=== PATIENT | male | born 1995 ===

== ENCOUNTER 2023-02-13 23:57 | Inpatient (IN) | payer OTHER, SELFPAY ==
[2023-02-14 06:01] VITALS: BMI 38.4
--- NOTE | 2023-02-14 06:07 | PC.ADMIT ---
Addendum entered by Diane Hernandes RN 02/14/23 06:26: I can't control the thoughts and their really intense in patients medication history he has taken Abilify in the past however he did not receive the medication in the [facility] ER on 02/13 therefore this medication requires clarification ( the patient cannot remember the name of the pharmacy that is used by the respite facility the patient currently resides in. the patient states he has a history of diabetes I only take metformin, I'm not staying here if people think they are going to stick my fingers cause they're not and a reported history of HTN. 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 the patient denies AVH then stated that sometimes I hear a voice in my head that is west commanding me to do things. sometimes I see things it used to be shadows, I started seeing them when I was little, then they turned into monsters. Yes, the voice was telling me to kill everyone in the world. It told me to get all the blow fish from the sea and get their poison and then use their poison to kill everyone because there is no cure for that poison. I don't really want to kill everyone but then again I do, what's the point. life is pain and disappointment, what's the point. I couldn't stop the thoughts about killing everyone so then I started thinking that I should kill myself, at least then I wouldn't be having all these thoughts patient is oriented but has racing thoughts and flight of ideas and grandiosity. he states that he doesn't think his medications are working I've been on the same stuff for a really long time they can't be working right because I'm having these thoughts that I can't comn .
--- NOTE | 2023-02-14 06:15 | PHA.MEDREC ---
Pharmacy Consult ? Medication Reconciliation Pharmacy has completed the medication reconciliation. Pharmacy has reviewed med rec done by nursing
[2023-02-14 08:10] VITALS: BP 107/69; PULSE 87; RESP 18; TEMP 36.7; O2SAT 98
[2023-02-14] MEDS: Lurasidone HCl 40 MG TABLET PO (09:29)
[2023-02-14] MEDS: Propranolol HCL LA 80 MG CAP.SA.24H PO (09:29)
[2023-02-14] MEDS: metFORMIN HCl ER 500 MG TAB.ER.24H PO (09:29)
[2023-02-14 10:23] VITALS: BMI 38.7
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
[2023-02-14] MEDS: OLANZapine 5 MG TABLET PO ×2 (16:39→21:40)
--- NOTE | 2023-02-14 17:20 | PC.NURSE ---
Pt engaging in self-dialogue, speaking in snake-like tongues, pacing hallway. Offered and accepting of zyprexa PRN (see MAR). When given the medication, pt told RN, I'll take whatever you give me, just as long as I get to leave next week. Nothing you give me is going to work, I've tried it all. No change in behaviors since medication administration. Will continue to monitor.
[2023-02-14 21:33] VITALS: BP 130/86; PULSE 94; RESP 18; TEMP 36.6; O2SAT 98
[2023-02-14] MEDS: cloNIDine HCL 0.1 MG TABLET PO (21:39)
[2023-02-14] MEDS: Melatonin 3 MG TABLET 9 MG PO (21:39)
[2023-02-14] MEDS: Divalproex Sodium ER 500 MG TAB.ER.24H 2000 MG PO (21:40)
[2023-02-14] MEDS: traZODone HCL 100 MG TABLET PO (21:40)
[2023-02-15 08:48] LABS: MANUAL DIFF FLAG NO
[2023-02-15 08:55] LABS: Basophils Percent Auto 0.5 % (0-2); Eosinophils Absolute Auto 0.2 X10*3/uL (0.0-0.4); Eosinophils Percent Auto 3.1 % (0-4); Hemoglobin 14.3 g/dl (14.0-18.0); Imm Gran Abs Auto 0.03 X10*3/uL (0.00-0.03); Imm Gran Pct Auto 0.4 % (0.0-0.4); Lymphocytes Absolute Auto 2.6 X10*3/uL (1.2-4.9); Lymphocytes Percent Auto 34.1 % (20-40); Mean Corpuscular HGB Conc 33.3 g/dl (31.0-36.0); Mean Corpuscular Volume 84.1 fL (80.0-98.0); Monocytes Absolute Auto 0.6 X10*3/uL (0.1-1.2); Monocytes Percent Auto 7.8 % (2-11); Neutrophils Absolute Auto 4.2 x10*3/uL (2.0-8.3); Neutrophils Percent Auto 54.1 % (45-73); Platelet Count 210 X10*3/uL (160-400); Red Blood Count 5.11 X10*6/uL (4.60-5.80); Red Cell Distribution Width 12.9 % (11.0-16.0); White Blood Count 7.7 X10*3/uL (4.8-10.8)
[2023-02-15 09:00] VITALS: BP 117/70; PULSE 68; RESP 16; TEMP 36.3; O2SAT 96
[2023-02-15 09:08] LABS: Estimated Average Glucose 94 mg/dL; Hemoglobin A1c % 4.9 % (<6.0)
[2023-02-15 09:10] LABS: Creatinine Clr Calc Pharmacy 199.5; Estimated Glomerular Filt Rate > 60
[2023-02-15 09:18] LABS: Alanine Aminotransferase 18 U/L (0-40); Alkaline Phosphatase 73 U/L (39-117); Anion Gap 13 (12-20); Aspartate Amino Transferase 19 U/L (5-37); Bilirubin Total 0.3 mg/dL (0.0-1.0); Blood Urea Nitrogen 15 mg/dL (9-16); Calcium 9.2 mg/dL (8.4-10.2); Carbon Dioxide 24 mmol/L (22-29); Chloride 109 mmol/L (96-108); Cholesterol 133 mg/dL (<200); Creatinine Clr Calc Pharmacy 194.7; Estimated Glomerular Filt Rate > 60; Glucose Fasting 89 mg/dL (60-99); HDL Cholesterol 29 mg/dL (>40); LDL Cholesterol Calculated 56 mg/dL (<100); Potassium 4.2 mmol/L (3.3-5.1); Sodium 142 mmol/L (135-145); Total Protein 7.8 g/dL (6.5-8.0); Triglycerides 242 mg/dL (<150)
[2023-02-15 09:30] LABS: Free T4 (Free Thyroxine) 1.09 ng/dL (0.71-1.85); Thyroid Stimulating Hormone 1.36 uIU/mL (0.32-4.0)
[2023-02-15 09:43] LABS: Vitamin B12 405 pg/mL (200-900)
[2023-02-15] MEDS: Propranolol HCL LA 80 MG CAP.SA.24H PO (09:55)
[2023-02-15] MEDS: Lurasidone HCl 40 MG TABLET PO (09:56)
[2023-02-15] MEDS: metFORMIN HCl ER 500 MG TAB.ER.24H PO (09:56)
--- NOTE | 2023-02-15 13:24 | HO.PSYCHPN ---
Subjective Subjective Date of Service: 02/15/23 Reason For Visit: schizoaffective disorder, bipolar type Interim History: calm, cooperative. seen with IFTIKHAR culp. denies any change in how he is doing from the medications. willing to continue on VPA 2 grams for the weekend with likely increase in dose next week. also willing to double latuda to 80 mg daily. per staff, sleeping well. anx/dep 3. +VH. seeing layered realities. not attending groups. RIS, speaking in snake tongues. Mental Status Exam Mental Status Exam Narrative: dressed flamboyantly in orange socks, black pants, and a garish silver and black shirt suitable perhaps for a discotheque. poor hygiene. no PMA/PMR. cooperative. speech nml rate, amount, loudness, tone, latency. thoughts linear and logical. affect constricted, normo-intense, non-labile. mood OK. no SI/SIBI/HI/AVH expressed. Diagnostics Vital Signs (24Hr): Vital Signs - 24 hr 02/14/23 21:33 02/15/23 09:00 Temperature 97.8 F 97.3 F Pulse Rate 94 68 Respiratory Rate 18 16 Blood Pressure 130/86 117/70 Pulse Oximetry 98 96 Oxygen Delivery Method Room Air Room Air BMI result Body Mass Index 38.7 Labs 02/15/23 08:34 02/15/23 08:34 Labs: Laboratory Results - last 48 hr 02/15/23 02/15/23 02/15/23 08:34 08:34 08:34 WBC 7.7 RBC 5.11 Hgb 14.3 Hct 43.0 MCV 84.1 MCH 28.0 MCHC 33.3 RDW 12.9 Plt Count 210 MPV 8.0 L Immature Gran % (Auto) 0.4 Neut % (Auto) 54.1 Lymph % (Auto) 34.1 [place] % (Auto) 7.8 Eos % (Auto) 3.1 Baso % (Auto) 0.5 Lymph # (Auto) 2.6 [place] # (Auto) 0.6 Eos # (Auto) 0.2 Baso # (Auto) 0.0 Abs Immat Gran (auto) 0.03 Absolute Neuts (auto) 4.2 Absolute Nucleated RBC 0.000 Nucleated RBC % (auto) 0.0 Sodium 142 Potassium 4.2 Chloride 109 H Carbon Dioxide 24 Anion Gap 13 BUN 15 Creatinine 0.83 Estim Creat Clear Calc 194.7 Estimated GFR > 60 Fasting Glucose 89 Estimat Average Glucose 94 Hemoglobin A1c % 4.9 Calcium 9.2 Total Bilirubin 0.3 AST 19 ALT 18 Alkaline Phosphatase 73 Total Protein 7.8 Albumin 4.0 Triglycerides 242 H Cholesterol 133 LDL Cholesterol, Calc 56 HDL Cholesterol 29 L Vitamin B12 Folate TSH 1.36 Free T4 1.09 02/15/23 02/15/23 08:34 08:34 WBC RBC Hgb Hct MCV MCH MCHC RDW Plt Count MPV Immature Gran % (Auto) Neut % (Auto) Lymph % (Auto) [place] % (Auto) Eos % (Auto) Baso % (Auto) Lymph # (Auto) [place] # (Auto) Eos # (Auto) Baso # (Auto) Abs Immat Gran (auto) Absolute Neuts (auto) Absolute Nucleated RBC Nucleated RBC % (auto) Sodium Potassium Chloride Carbon Dioxide Anion Gap BUN Creatinine 0.81 Estim Creat Clear Calc 199.5 Estimated GFR > 60 Fasting Glucose Estimat Average Glucose Hemoglobin A1c % Calcium Total Bilirubin AST ALT Alkaline Phosphatase Total Protein Albumin Triglycerides Cholesterol LDL Cholesterol, Calc HDL Cholesterol Vitamin B12 405 Folate 8.0 TSH Free T4 Medications Medications Current Medications Acetaminophen (Acetaminophen 325 Mg Tablet) 650 mg PO Q6H PRN PRN Reason: Headache/Pain Mild Scale (1-3) Al Hydroxide/Mg Hydroxide (Magnesium Hydrox/Alum Hydrox 30 Ml Oral.Susp) 30 ml PO Q6H PRN PRN Reason: Heartburn/Nausea Clonidine HCl (Clonidine Hcl 0.1 Mg Tablet) 0.1 mg PO BEDTIME JOSÉ LUIS; Protocol Last Admin: 02/14/23 21:39 Dose: 0.1 mg Divalproex Sodium (Divalproex Sodium Er 500 Mg Tab.Er.24h) 2,000 mg PO BEDTIME JOSÉ LUIS Last Admin: 02/14/23 21:40 Dose: 2,000 mg Hydroxyzine HCl (Hydroxyzine Hcl 25 Mg Tablet) 25 mg PO Q6H PRN PRN Reason: Anxiety Lurasidone HCl (Lurasidone Hcl 80 Mg Tablet) 80 mg PO DAILY JOSÉ LUIS Magnesium Hydroxide (Milk Of Magnesia 30 Ml Oral.Susp) 30 ml PO DAILY PRN PRN Reason: Constipation Melatonin (Melatonin 3 Mg Tablet) 9 mg PO BEDTIME JOSÉ LUIS Last Admin: 02/14/23 21:39 Dose: 9 mg Metformin HCl (Metformin Hcl Er 500 Mg Tab.Er.24h) 500 mg PO DAILY JOSÉ LUIS Last Admin: 02/15/23 09:56 Dose: 500 mg Olanzapine (Olanzapine 5 Mg Tablet) 5 mg PO Q4H PRN PRN Reason: Psychosis Last Admin: 02/14/23 21:40 Dose: 5 mg Propranolol HCl (Propranolol Hcl La 80 Mg Cap.Sa.24h) 80 mg PO DAILY JOSÉ LUIS; Protocol Last Admin: 02/15/23 09:55 Dose: 80 mg Trazodone HCl (Trazodone Hcl 100 Mg Tablet) 100 mg PO BEDTIME JOSÉ LUIS Last Admin: 02/14/23 21:40 Dose: 100 mg Trazodone HCl (Trazodone Hcl 50 Mg Tablet) 50 mg PO BEDTIME MRX1 PRN PRN Reason: Insomnia Allergies Allergies Allergy/AdvReac Type Severity Reaction Status Date / Time No Known Allergies Allergy Verified 02/14/23 00:31 Assessment & Plan Assessment & Plan (1) Schizoaffective disorder, bipolar type: Status: Acute Code(s): F25.0 - Schizoaffective disorder, bipolar type (2) Diabetes mellitus: Status: Acute Code(s): E11.9 - Type 2 diabetes mellitus without complications (3) Obesity: Status: Acute Code(s): E66.9 - Obesity, unspecified Plan 02/14: continue outpt regimen. add mood stabilizer - declines lithium, so will start VPA 2000 mg QHS as of tonight. labs this evening. 02/15: increase latuda to 80 mg daily, otherwise continue current mgmt. stable presentation. Reason for continued inpatient stay Substantial Risk for: harm to self, inability to function and rapid decompensation Time Spent With Patient Time: Total time managing care of this patient today _35___ minutes.
[2023-02-15] MEDS: Divalproex Sodium ER 500 MG TAB.ER.24H 2000 MG PO (20:19)
[2023-02-15] MEDS: Melatonin 3 MG TABLET 9 MG PO (20:19)
[2023-02-15] MEDS: cloNIDine HCL 0.1 MG TABLET PO (20:19)
[2023-02-15 20:20] VITALS: BP 127/66; PULSE 98; RESP 18; TEMP 36.1; O2SAT 97
[2023-02-15] MEDS: OLANZapine 5 MG TABLET PO (20:20)
[2023-02-15] MEDS: traZODone HCL 100 MG TABLET PO (20:20)
[2023-02-16 08:51] VITALS: BP 134/93; PULSE 85; TEMP 36.1; O2SAT 99
[2023-02-16] MEDS: Lurasidone HCl 80 MG TABLET PO (08:59)
[2023-02-16] MEDS: Propranolol HCL LA 80 MG CAP.SA.24H PO (08:59)
[2023-02-16] MEDS: metFORMIN HCl ER 500 MG TAB.ER.24H PO (09:00)
--- NOTE | 2023-02-16 10:46 | HO.PSYCHPN ---
Subjective Subjective Date of Service: 02/16/23 Reason For Visit: schizoaffective disorder, bipolar type Interim History: Patient seen and discussed. Tolerating increase in Latuda. Seen walking in the hallway self dialoguing. He continues to have AVH and when asked directly he says I plead the 5th. Adherent to medications. Voices hopelessness about benefit from medication adjustments. denies any change in how he is doing from the medications. Per staff, sleeping well. anx/dep +VH. Not attending groups. RIS, speaking in snake tongues. Review of Systems Review of Systems Patient has no acute medical complaints at this time Yes all other systems are reviewed and are negative Mental Status Exam Mental Status Exam Narrative: dressed flamboyantly in orange socks, black pants, and a garish silver and black shirt suitable perhaps for a discotheque. poor hygiene. no PMA/PMR. cooperative. speech nml rate, amount, loudness, tone, latency. thoughts linear and logical. affect constricted, normo-intense, non-labile. mood OK. no SI/SIBI/HI/AVH expressed. Diagnostics Vital Signs (24Hr): Vital Signs - 24 hr 02/15/23 20:20 02/16/23 08:51 Temperature 97 F 97 F Pulse Rate 98 85 Respiratory Rate 18 Blood Pressure 127/66 134/93 H Pulse Oximetry 97 99 Oxygen Delivery Method Room Air Room Air BMI result Body Mass Index 38.7 Labs 02/15/23 08:34 02/15/23 08:34 Labs: Laboratory Results - last 48 hr 02/15/23 02/15/23 02/15/23 08:34 08:34 08:34 WBC 7.7 RBC 5.11 Hgb 14.3 Hct 43.0 MCV 84.1 MCH 28.0 MCHC 33.3 RDW 12.9 Plt Count 210 MPV 8.0 L Immature Gran % (Auto) 0.4 Neut % (Auto) 54.1 Lymph % (Auto) 34.1 Banks % (Auto) 7.8 Eos % (Auto) 3.1 Baso % (Auto) 0.5 Lymph # (Auto) 2.6 Banks # (Auto) 0.6 Eos # (Auto) 0.2 Baso # (Auto) 0.0 Abs Immat Gran (auto) 0.03 Absolute Neuts (auto) 4.2 Absolute Nucleated RBC 0.000 Nucleated RBC % (auto) 0.0 Sodium 142 Potassium 4.2 Chloride 109 H Carbon Dioxide 24 Anion Gap 13 BUN 15 Creatinine 0.83 Estim Creat Clear Calc 194.7 Estimated GFR > 60 Fasting Glucose 89 Estimat Average Glucose 94 Hemoglobin A1c % 4.9 Calcium 9.2 Total Bilirubin 0.3 AST 19 ALT 18 Alkaline Phosphatase 73 Total Protein 7.8 Albumin 4.0 Triglycerides 242 H Cholesterol 133 LDL Cholesterol, Calc 56 HDL Cholesterol 29 L Vitamin B12 Folate TSH 1.36 Free T4 1.09 02/15/23 02/15/23 08:34 08:34 WBC RBC Hgb Hct MCV MCH MCHC RDW Plt Count MPV Immature Gran % (Auto) Neut % (Auto) Lymph % (Auto) Banks % (Auto) Eos % (Auto) Baso % (Auto) Lymph # (Auto) Banks # (Auto) Eos # (Auto) Baso # (Auto) Abs Immat Gran (auto) Absolute Neuts (auto) Absolute Nucleated RBC Nucleated RBC % (auto) Sodium Potassium Chloride Carbon Dioxide Anion Gap BUN Creatinine 0.81 Estim Creat Clear Calc 199.5 Estimated GFR > 60 Fasting Glucose Estimat Average Glucose Hemoglobin A1c % Calcium Total Bilirubin AST ALT Alkaline Phosphatase Total Protein Albumin Triglycerides Cholesterol LDL Cholesterol, Calc HDL Cholesterol Vitamin B12 405 Folate 8.0 TSH Free T4 Medications Medications Current Medications Acetaminophen (Acetaminophen 325 Mg Tablet) 650 mg PO Q6H PRN PRN Reason: Headache/Pain Mild Scale (1-3) Al Hydroxide/Mg Hydroxide (Magnesium Hydrox/Alum Hydrox 30 Ml Oral.Susp) 30 ml PO Q6H PRN PRN Reason: Heartburn/Nausea Clonidine HCl (Clonidine Hcl 0.1 Mg Tablet) 0.1 mg PO BEDTIME JOSÉ LUIS; Protocol Last Admin: 02/15/23 20:19 Dose: 0.1 mg Divalproex Sodium (Divalproex Sodium Er 500 Mg Tab.Er.24h) 2,000 mg PO BEDTIME JOSÉ LUIS Last Admin: 02/15/23 20:19 Dose: 2,000 mg Hydroxyzine HCl (Hydroxyzine Hcl 25 Mg Tablet) 25 mg PO Q6H PRN PRN Reason: Anxiety Lurasidone HCl (Lurasidone Hcl 80 Mg Tablet) 80 mg PO DAILY JOSÉ LUIS Last Admin: 02/16/23 08:59 Dose: 80 mg Magnesium Hydroxide (Milk Of Magnesia 30 Ml Oral.Susp) 30 ml PO DAILY PRN PRN Reason: Constipation Melatonin (Melatonin 3 Mg Tablet) 9 mg PO BEDTIME JOSÉ LUIS Last Admin: 02/15/23 20:19 Dose: 9 mg Metformin HCl (Metformin Hcl Er 500 Mg Tab.Er.24h) 500 mg PO DAILY JOSÉ LUIS Last Admin: 02/16/23 09:00 Dose: 500 mg Olanzapine (Olanzapine 5 Mg Tablet) 5 mg PO Q4H PRN PRN Reason: Psychosis Last Admin: 02/15/23 20:20 Dose: 5 mg Propranolol HCl (Propranolol Hcl La 80 Mg Cap.Sa.24h) 80 mg PO DAILY JOSÉ LUIS; Protocol Last Admin: 02/16/23 08:59 Dose: 80 mg Trazodone HCl (Trazodone Hcl 100 Mg Tablet) 100 mg PO BEDTIME JOSÉ LUIS Last Admin: 02/15/23 20:20 Dose: 100 mg Trazodone HCl (Trazodone Hcl 50 Mg Tablet) 50 mg PO BEDTIME MRX1 PRN PRN Reason: Insomnia Allergies Allergies Allergy/AdvReac Type Severity Reaction Status Date / Time No Known Allergies Allergy Verified 02/14/23 00:31 Assessment & Plan Assessment & Plan (1) Schizoaffective disorder, bipolar type: Status: Acute Code(s): F25.0 - Schizoaffective disorder, bipolar type (2) Diabetes mellitus: Status: Acute Code(s): E11.9 - Type 2 diabetes mellitus without complications (3) Obesity: Status: Acute Code(s): E66.9 - Obesity, unspecified Plan 02/14: continue outpt regimen. add mood stabilizer - declines lithium, so will start VPA 2000 mg QHS as of tonight. labs this evening. 02/15: increase latuda to 80 mg daily, otherwise continue current mgmt. stable presentation. 02/16: Continue current treatment unchanged. Reason for continued inpatient stay Substantial Risk for: inability to function and rapid decompensation Time Spent With Patient Time: Total time managing care of this patient today ____ minutes.
[2023-02-16 20:10] VITALS: BP 105/62; PULSE 98; RESP 18; TEMP 36.3; O2SAT 99
[2023-02-16] MEDS: cloNIDine HCL 0.1 MG TABLET PO (20:12)
[2023-02-16] MEDS: Divalproex Sodium ER 500 MG TAB.ER.24H 2000 MG PO (20:12)
[2023-02-16] MEDS: traZODone HCL 100 MG TABLET PO (20:12)
[2023-02-16] MEDS: OLANZapine 5 MG TABLET PO (20:12)
[2023-02-16] MEDS: Melatonin 3 MG TABLET 9 MG PO (20:12)
[2023-02-17] MEDS: Lurasidone HCl 80 MG TABLET PO (09:17)
[2023-02-17] MEDS: Propranolol HCL LA 80 MG CAP.SA.24H PO (09:17)
[2023-02-17] MEDS: metFORMIN HCl ER 500 MG TAB.ER.24H PO (09:18)
[2023-02-17 09:20] VITALS: BP 133/80; PULSE 80; TEMP 35.9; O2SAT 99
--- NOTE | 2023-02-17 13:57 | P.PNPSI_ITS ---
Subjective Subjective Date of Service: 02/17/23 Reason For Visit: schizoaffective disorder, bipolar type Interim History: Patient seen and discussed. Patient remains disheveled. He paces the dennison and appears to be self dialoguing. Wants to be discharged tomorrow. Poor self care. Same clothes. Didn't shower. Per staff, sleeping well. +AVH. Not attending groups. Adherent to medication but voices hopelessness about benefit from adjustments. denies any change in how he is doing from the medications. Review of Systems Review of Systems Patient has no acute medical complaints at this time Yes all other systems are reviewed and are negative Mental Status Exam Mental Status Exam Narrative: dressed flamboyantly in orange socks, black pants, and a garish silver and black shirt suitable perhaps for a discotheque. poor hygiene. no PMA/PMR. cooperative. speech nml rate, amount, loudness, tone, latency. thoughts linear and logical. affect constricted, normo-intense, non-labile. mood OK. no SI/SIBI/HI/AVH expressed. Diagnostics Vital Signs (24Hr): Vital Signs - 24 hr 02/16/23 20:10 02/17/23 09:20 Temperature 97.3 F 96.6 F L Pulse Rate 98 80 Respiratory Rate 18 Blood Pressure 105/62 133/80 Pulse Oximetry 99 99 Oxygen Delivery Method Room Air Room Air BMI result Body Mass Index 38.7 Labs 02/15/23 08:34 02/15/23 08:34 Medications Medications Current Medications Acetaminophen (Acetaminophen 325 Mg Tablet) 650 mg PO Q6H PRN PRN Reason: Headache/Pain Mild Scale (1-3) Al Hydroxide/Mg Hydroxide (Magnesium Hydrox/Alum Hydrox 30 Ml Oral.Susp) 30 ml PO Q6H PRN PRN Reason: Heartburn/Nausea Clonidine HCl (Clonidine Hcl 0.1 Mg Tablet) 0.1 mg PO BEDTIME JOSÉ LUIS; Protocol Last Admin: 02/16/23 20:12 Dose: 0.1 mg Divalproex Sodium (Divalproex Sodium Er 500 Mg Tab.Er.24h) 2,000 mg PO BEDTIME JOSÉ LUIS Last Admin: 02/16/23 20:12 Dose: 2,000 mg Hydroxyzine HCl (Hydroxyzine Hcl 25 Mg Tablet) 25 mg PO Q6H PRN PRN Reason: Anxiety Lurasidone HCl (Lurasidone Hcl 80 Mg Tablet) 80 mg PO DAILY [facility] Last Admin: 02/17/23 09:17 Dose: 80 mg Magnesium Hydroxide (Milk Of Magnesia 30 Ml Oral.Susp) 30 ml PO DAILY PRN PRN Reason: Constipation Melatonin (Melatonin 3 Mg Tablet) 9 mg PO BEDTIME JOSÉ LUIS Last Admin: 02/16/23 20:12 Dose: 9 mg Metformin HCl (Metformin Hcl Er 500 Mg Tab.Er.24h) 500 mg PO DAILY [facility] Last Admin: 02/17/23 09:18 Dose: 500 mg Olanzapine (Olanzapine 5 Mg Tablet) 5 mg PO Q4H PRN PRN Reason: Psychosis Last Admin: 02/16/23 20:12 Dose: 5 mg Propranolol HCl (Propranolol Hcl La 80 Mg Cap.Sa.24h) 80 mg PO DAILY [facility]; Protocol Last Admin: 02/17/23 09:17 Dose: 80 mg Trazodone HCl (Trazodone Hcl 100 Mg Tablet) 100 mg PO BEDTIME [facility] Last Admin: 02/16/23 20:12 Dose: 100 mg Trazodone HCl (Trazodone Hcl 50 Mg Tablet) 50 mg PO BEDTIME MRX1 PRN PRN Reason: Insomnia Allergies Allergies Allergy/AdvReac Type Severity Reaction Status Date / Time No Known Allergies Allergy Verified 02/14/23 00:31 Assessment & Plan Assessment & Plan (1) Schizoaffective disorder, bipolar type: Status: Acute Code(s): F25.0 - Schizoaffective disorder, bipolar type (2) Diabetes mellitus: Status: Acute Code(s): E11.9 - Type 2 diabetes mellitus without complications (3) Obesity: Status: Acute Code(s): E66.9 - Obesity, unspecified Plan 02/14: continue outpt regimen. add mood stabilizer - declines lithium, so will start VPA 2000 mg QHS as of tonight. labs this evening. 02/15: increase latuda to 80 mg daily, otherwise continue current mgmt. stable presentation. 02/16: Continue current treatment unchanged. 02/17: Continue current treatment plan. Encourage self care and hygiene. Reason for continued inpatient stay Substantial Risk for: inability to function and rapid decompensation Time Spent With Patient Time: Total time managing care of this patient today ____ minutes.
[2023-02-17 18:00] VITALS: BP 129/75; PULSE 97; TEMP 36.2; O2SAT 98
[2023-02-17] MEDS: Melatonin 3 MG TABLET 9 MG PO (20:03)
[2023-02-17] MEDS: Divalproex Sodium ER 500 MG TAB.ER.24H 2000 MG PO (20:03)
[2023-02-17] MEDS: cloNIDine HCL 0.1 MG TABLET PO (20:04)
[2023-02-17] MEDS: traZODone HCL 100 MG TABLET PO (20:04)
[2023-02-18 10:46] VITALS: BP 127/81; PULSE 102; RESP 16; TEMP 36.6; O2SAT 99
--- NOTE | 2023-02-18 14:28 | HO.PSYCHPN ---
Subjective Subjective Date of Service: 02/18/23 Reason For Visit: schizoaffective disorder, bipolar type Interim History: calm, cooperative, linear, logical. reports having been sleeping well until last night. asking for all meds to be made HS meds, feels the randy has been making him very tired mornings. plan agreed to, all meds switched to HS. barring any unexpected events, planning for discharge. per staff, muttering, pacing. slept 2 hours overnight. Mental Status Exam Mental Status Exam Narrative: dressed flamboyantly in orange socks, black pants, and a garish silver and black shirt suitable perhaps for a discotheque. poor hygiene. slight PMR. cooperative. speech nml rate, amount, loudness, latency. flattened tone. thoughts linear and logical. affect constricted, normo-intense, non-labile. mood OK. no SI/SIBI/HI/AVH expressed. Diagnostics Vital Signs (24Hr): Vital Signs - 24 hr 02/17/23 18:00 02/18/23 10:46 Temperature 97.2 F 97.8 F Pulse Rate 97 102 H Respiratory Rate 16 Blood Pressure 129/75 127/81 Pulse Oximetry 98 99 Oxygen Delivery Method Room Air Room Air BMI result Body Mass Index 38.7 Labs 02/15/23 08:34 02/15/23 08:34 Medications Medications Current Medications Acetaminophen (Acetaminophen 325 Mg Tablet) 650 mg PO Q6H PRN PRN Reason: Headache/Pain Mild Scale (1-3) Al Hydroxide/Mg Hydroxide (Magnesium Hydrox/Alum Hydrox 30 Ml Oral.Susp) 30 ml PO Q6H PRN PRN Reason: Heartburn/Nausea Clonidine HCl (Clonidine Hcl 0.1 Mg Tablet) 0.1 mg PO BEDTIME JOSÉ LUIS; Protocol Last Admin: 02/17/23 20:04 Dose: 0.1 mg Divalproex Sodium (Divalproex Sodium Er 500 Mg Tab.Er.24h) 2,000 mg PO BEDTIME JOSÉ LUIS Last Admin: 02/17/23 20:03 Dose: 2,000 mg Hydroxyzine HCl (Hydroxyzine Hcl 25 Mg Tablet) 25 mg PO Q6H PRN PRN Reason: Anxiety Lurasidone HCl (Lurasidone Hcl 80 Mg Tablet) 80 mg PO BEDTIME JOSÉ LUIS Magnesium Hydroxide (Milk Of Magnesia 30 Ml Oral.Susp) 30 ml PO DAILY PRN PRN Reason: Constipation Melatonin (Melatonin 3 Mg Tablet) 9 mg PO BEDTIME JOSÉ LUIS Last Admin: 02/17/23 20:03 Dose: 9 mg Metformin HCl (Metformin Hcl Er 500 Mg Tab.Er.24h) 500 mg PO BEDTIME JOSÉ LUIS Olanzapine (Olanzapine 5 Mg Tablet) 5 mg PO Q4H PRN PRN Reason: Psychosis Last Admin: 02/16/23 20:12 Dose: 5 mg Propranolol HCl (Propranolol Hcl La 80 Mg Cap.Sa.24h) 80 mg PO BEDTIME JOSÉ LUIS; Protocol Trazodone HCl (Trazodone Hcl 100 Mg Tablet) 100 mg PO BEDTIME JOSÉ LUIS Last Admin: 02/17/23 20:04 Dose: 100 mg Trazodone HCl (Trazodone Hcl 50 Mg Tablet) 50 mg PO BEDTIME MRX1 PRN PRN Reason: Insomnia Allergies Allergies Allergy/AdvReac Type Severity Reaction Status Date / Time No Known Allergies Allergy Verified 02/14/23 00:31 Assessment & Plan Assessment & Plan (1) Schizoaffective disorder, bipolar type: Status: Acute Code(s): F25.0 - Schizoaffective disorder, bipolar type (2) Diabetes mellitus: Status: Acute Code(s): E11.9 - Type 2 diabetes mellitus without complications (3) Obesity: Status: Acute Code(s): E66.9 - Obesity, unspecified Plan 02/14: continue outpt regimen. add mood stabilizer - declines lithium, so will start VPA 2000 mg QHS as of ton. labs this evening. 02/15: increase latuda to 80 mg daily, otherwise continue current mgmt. stable presentation. 02/16: Continue current treatment unchanged. 02/17: Continue current treatment plan. Encourage self care and hygiene. 02/18: switch all meds to HS as pt reports latuda in a.m. is quite sedating. states he has been sleeping well nights up until last night. labs due tomorrow evening, so ordered. titrate VPA as indicated weds. Reason for continued inpatient stay Substantial Risk for: inability to function and rapid decompensation Time Spent With Patient Time: Total time managing care of this patient today __35__ minutes.
[2023-02-18 19:55] VITALS: BP 136/75; PULSE 88; RESP 18; TEMP 36.3; O2SAT 98
[2023-02-18] MEDS: Lurasidone HCl 80 MG TABLET PO (20:06)
[2023-02-18] MEDS: metFORMIN HCl ER 500 MG TAB.ER.24H PO (20:06)
[2023-02-18] MEDS: traZODone HCL 100 MG TABLET PO (20:06)
[2023-02-18] MEDS: Propranolol HCL LA 80 MG CAP.SA.24H PO (20:06)
[2023-02-18] MEDS: Melatonin 3 MG TABLET 9 MG PO (20:06)
[2023-02-18] MEDS: Divalproex Sodium ER 500 MG TAB.ER.24H 2000 MG PO (20:06)
[2023-02-18] MEDS: cloNIDine HCL 0.1 MG TABLET PO (20:06)
[2023-02-19 10:16] VITALS: BP 127/58; PULSE 67; RESP 18; TEMP 36.7; O2SAT 98
--- NOTE | 2023-02-19 14:51 | HO.PSYCHPN ---
Subjective Subjective Date of Service: 02/19/23 Reason For Visit: schizoaffective disorder, bipolar type Interim History: calm, cooperative. no complaints or requests aside from anxiety re whether or not he will be allowed to discharge on . plan discussed, pt reassured. states he slept better last night after meds changed to all at HS. per staff, showered and washed clothes. denies dep/anx. spending lots of time in bed. denies SI/HI/AVH. Mental Status Exam Mental Status Exam Narrative: dressed flamboyantly in orange socks, black pants, and a garish silver and black shirt suitable perhaps for a discotheque. fair hygiene. slight PMR. cooperative. speech nml rate, amount, loudness, latency. flattened tone. thoughts linear and logical. affect constricted, normo-intense, non-labile. mood OK. no SI/SIBI/HI/AVH expressed. Diagnostics Vital Signs (24Hr): Vital Signs - 24 hr 02/18/23 19:55 02/19/23 10:16 Temperature 97.4 F 98.0 F Pulse Rate 88 67 Respiratory Rate 18 18 Blood Pressure 136/75 127/58 L Pulse Oximetry 98 98 Oxygen Delivery Method Room Air Room Air BMI result Body Mass Index 38.7 Labs 02/15/23 08:34 02/15/23 08:34 Medications Medications Current Medications Acetaminophen (Acetaminophen 325 Mg Tablet) 650 mg PO Q6H PRN PRN Reason: Headache/Pain Mild Scale (1-3) Al Hydroxide/Mg Hydroxide (Magnesium Hydrox/Alum Hydrox 30 Ml Oral.Susp) 30 ml PO Q6H PRN PRN Reason: Heartburn/Nausea Clonidine HCl (Clonidine Hcl 0.1 Mg Tablet) 0.1 mg PO BEDTIME JOSÉ LUIS; Protocol Last Admin: 02/18/23 20:06 Dose: 0.1 mg Divalproex Sodium (Divalproex Sodium Er 500 Mg Tab.Er.24h) 2,000 mg PO BEDTIME JOSÉ LUIS Last Admin: 02/18/23 20:06 Dose: 2,000 mg Hydroxyzine HCl (Hydroxyzine Hcl 25 Mg Tablet) 25 mg PO Q6H PRN PRN Reason: Anxiety Lurasidone HCl (Lurasidone Hcl 80 Mg Tablet) 80 mg PO BEDTIME JOSÉ LUIS Last Admin: 02/18/23 20:06 Dose: 80 mg Magnesium Hydroxide (Milk Of Magnesia 30 Ml Oral.Susp) 30 ml PO DAILY PRN PRN Reason: Constipation Melatonin (Melatonin 3 Mg Tablet) 9 mg PO BEDTIME JOSÉ LUIS Last Admin: 02/18/23 20:06 Dose: 9 mg Metformin HCl (Metformin Hcl Er 500 Mg Tab.Er.24h) 500 mg PO BEDTIME JOSÉ LUIS Last Admin: 02/18/23 20:06 Dose: 500 mg Olanzapine (Olanzapine 5 Mg Tablet) 5 mg PO Q4H PRN PRN Reason: Psychosis Last Admin: 02/16/23 20:12 Dose: 5 mg Propranolol HCl (Propranolol Hcl La 80 Mg Cap.Sa.24h) 80 mg PO BEDTIME JOSÉ LUIS; Protocol Last Admin: 02/18/23 20:06 Dose: 80 mg Trazodone HCl (Trazodone Hcl 100 Mg Tablet) 100 mg PO BEDTIME JOSÉ LUIS Last Admin: 02/18/23 20:06 Dose: 100 mg Trazodone HCl (Trazodone Hcl 50 Mg Tablet) 50 mg PO BEDTIME MRX1 PRN PRN Reason: Insomnia Allergies Allergies Allergy/AdvReac Type Severity Reaction Status Date / Time No Known Allergies Allergy Verified 02/14/23 00:31 Assessment & Plan Assessment & Plan (1) Schizoaffective disorder, bipolar type: Status: Acute Code(s): F25.0 - Schizoaffective disorder, bipolar type (2) Diabetes mellitus: Status: Acute Code(s): E11.9 - Type 2 diabetes mellitus without complications (3) Obesity: Status: Acute Code(s): E66.9 - Obesity, unspecified Plan 02/14: continue outpt regimen. add mood stabilizer - declines lithium, so will start VPA 2000 mg QHS as of tonight. labs this evening. 02/15: increase latuda to 80 mg daily, otherwise continue current mgmt. stable presentation. 02/16: Continue current treatment unchanged. 02/17: Continue current treatment plan. Encourage self care and hygiene. 02/18: switch all meds to HS as pt reports latuda in a.m. is quite sedating. states he has been sleeping well nights up until last night. labs due tomorrow evening, so ordered. titrate VPA as indicated weds. 02/19: stable presentation. continue current mgmt. labs tonight. Reason for continued inpatient stay Substantial Risk for: inability to function and rapid decompensation Time Spent With Patient Time: Total time managing care of this patient today _25___ minutes.
[2023-02-19 20:20] VITALS: BP 129/68; PULSE 116; RESP 18; TEMP 36.4; O2SAT 97
[2023-02-19] MEDS: Melatonin 3 MG TABLET 9 MG PO (20:26)
[2023-02-19] MEDS: metFORMIN HCl ER 500 MG TAB.ER.24H PO (20:26)
[2023-02-19] MEDS: Divalproex Sodium ER 500 MG TAB.ER.24H 2000 MG PO (20:26)
[2023-02-19] MEDS: Propranolol HCL LA 80 MG CAP.SA.24H PO (20:26)
[2023-02-19 20:27] LABS: MANUAL DIFF FLAG NO
[2023-02-19] MEDS: traZODone HCL 100 MG TABLET PO (20:27)
[2023-02-19] MEDS: Lurasidone HCl 80 MG TABLET PO (20:27)
[2023-02-19] MEDS: cloNIDine HCL 0.1 MG TABLET PO (20:27)
[2023-02-19 20:38] LABS: Ammonia 37 umol/L (13-55)
[2023-02-19 20:46] LABS: Alanine Aminotransferase 15 U/L (0-40); Albumin Level 4.1 g/dL (3.5-5.0); Alkaline Phosphatase 70 U/L (39-117); Anion Gap 11 (12-20); Aspartate Amino Transferase 16 U/L (5-37); Bilirubin Direct 0.1 mg/dL (0.0-0.5); Bilirubin Total 0.3 mg/dL (0.0-1.0); Blood Urea Nitrogen 12 mg/dL (9-16); Calcium 9.2 mg/dL (8.4-10.2); Carbon Dioxide 29 mmol/L (22-29); Chloride 104 mmol/L (96-108); Creatinine Clr Calc Pharmacy 192.4; Estimated Glomerular Filt Rate > 60; Glucose Random 96 mg/dL (60-115); Potassium 4.2 mmol/L (3.3-5.1); Sodium 140 mmol/L (135-145); Total Protein 7.9 g/dL (6.5-8.0)
[2023-02-19 20:47] LABS: Valproate 64.9 mcg/mL (50.0-100.0)
[2023-02-19 21:08] LABS: Basophils Percent Auto 0.5 % (0-2); Eosinophils Absolute Auto 0.2 X10*3/uL (0.0-0.4); Hematocrit 43.5 % (42.0-52.0); Hemoglobin 14.4 g/dl (14.0-18.0); Imm Gran Abs Auto 0.05 X10*3/uL (0.00-0.03); Imm Gran Pct Auto 0.6 % (0.0-0.4); Lymphocytes Absolute Auto 2.3 X10*3/uL (1.2-4.9); Lymphocytes Percent Auto 26.5 % (20-40); Mean Corpuscular HGB Conc 33.1 g/dl (31.0-36.0); Mean Corpuscular Hemoglobin 28.6 pg (27.0-33.0); Mean Corpuscular Volume 86.3 fL (80.0-98.0); Mean Platelet Volume 8.4 fL (9.4-12.4); Monocytes Absolute Auto 0.6 X10*3/uL (0.1-1.2); Neutrophils Absolute Auto 5.5 x10*3/uL (2.0-8.3); Neutrophils Percent Auto 63.4 % (45-73); Platelet Count 246 X10*3/uL (160-400); Red Blood Count 5.04 X10*6/uL (4.60-5.80); Red Cell Distribution Width 12.7 % (11.0-16.0); White Blood Count 8.7 X10*3/uL (4.8-10.8)
[2023-02-20 07:58] VITALS: BP 121/82; PULSE 77; RESP 17; TEMP 36.3; O2SAT 99
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
[2023-02-20 19:55] VITALS: BP 130/80; PULSE 80; RESP 18; TEMP 36.3; O2SAT 99
[2023-02-20] MEDS: Divalproex Sodium ER 500 MG TAB.ER.24H 2500 MG PO (20:00)
[2023-02-20] MEDS: Melatonin 3 MG TABLET 9 MG PO (20:00)
[2023-02-20] MEDS: Lurasidone HCl 80 MG TABLET PO (20:00)
[2023-02-20] MEDS: Propranolol HCL LA 80 MG CAP.SA.24H PO (20:01)
[2023-02-20] MEDS: cloNIDine HCL 0.1 MG TABLET PO (20:01)
[2023-02-20] MEDS: metFORMIN HCl ER 500 MG TAB.ER.24H PO (20:01)
[2023-02-20] MEDS: traZODone HCL 100 MG TABLET PO (20:01)
[2023-02-20] MEDS: OLANZapine 5 MG TABLET PO (23:01)
[2023-02-20] MEDS: traZODone HCL 50 MG TABLET PO (23:02)
[2023-02-21 08:55] VITALS: BP 122/77; PULSE 80; RESP 16; TEMP 36.1; O2SAT 98
[2023-02-21 09:40] VITALS: BMI 39.4
--- NOTE | 2023-02-21 10:44 | PC.NURSE ---
Patient is alert 0x4, reported he has no pain or discomfort. Yisselro verbalized no statements of harm to self or others, and He denies having AH/VH. This marine underwriter reviewed all discharge instructions with patient and provided patient with a copy of his discharge instruction. Patient verbalized understanding of these instruction and signed for all his belongings. Patient is calm and cooperative during discharge process. Patient voiced no concerns and stated, looking forward to leaving.
== END 2023-02-21 11:25 | DRG 750 ==
PROVIDERS: Hospitalist; Psychiatry & Neurology Psychiatry; Admitting Provider Psychiatry & Neurology Psychiatry; Visit Provider Psychiatry & Neurology Psychiatry
DX: F25.0 Schizoaffective disorder, bipolar type (principal); R45.851 Suicidal ideations; E11.9 Type 2 diabetes mellitus without complications; E66.9 Obesity, unspecified; Z68.39 Body mass index [BMI] 39.0-39.9, adult; Z79.84 Long term (current) use of oral hypoglycemic drugs; Z79.899 Other long term (current) drug therapy
CPT/HCPCS: 36415; 80048; 80053; 80061; 80076; 80164; 82140; 82565; 82607; 82746; 83036; 84439; 84443; 85025

== ENCOUNTER → 2023-02-13 23:57 | Outpatient (BNV) | payer OTHER, SELFPAY | PROVIDERS: Admitting Provider Psychiatry & Neurology Psychiatry; Visit Provider Psychiatry & Neurology Psychiatry | DX: F25.0 Schizoaffective disorder, bipolar type (principal); E11.9 Type 2 diabetes mellitus without complications; E66.9 Obesity, unspecified | CPT/HCPCS: 90792; 99231; 99232; 99239 ==

== ENCOUNTER → 2023-02-13 23:57 | Outpatient (BNV) | payer OTHER, SELFPAY | PROVIDERS: Admitting Provider Psychiatry & Neurology Psychiatry; Visit Provider Student in an Organized Health Care Education/Training Program | DX: Z02.2 Encounter for examination for admission to residential institution (principal) | CPT/HCPCS: 99429 ==